=== PATIENT | female | born 1965 | race Caucasian/White ===

== ENCOUNTER 2020-05-02 06:20 | Day surgery (SDC) | payer OTHER ==
[~2020-05-02 06:20] MED LIST: AMILODIPINE PO; COZAAR100 MG PO; CRESTOR10 MG PO; SYNTHROID100 MCG PO; VITAMIN C100 MG PO; VITAMIN D PO; [UNRECOGNIZED DRUG - OTHER] PO
== END 2020-05-02 17:50 | disposition home or self-care (01) ==
LOC: CIR.AMB 06:20
PROVIDERS: ATTEND Obstetrics & Gynecology
DX: N84.0 Polyp of corpus uteri (principal); Z20.828 Contact with and (suspected) exposure to other viral communicable diseases

== ENCOUNTER 2020-05-03 10:53 | Emergency (ER) | payer OTHER ==
[~2020-05-03] VITALS: Ht 175.3 cm; Wt 90.7 kg
== END 2020-05-03 18:59 | disposition home or self-care (01) ==
LOC: ER 10:53
DX: K29.00 Acute gastritis without bleeding (principal); R51.9 Headache, unspecified

== ENCOUNTER 2020-05-06 13:14 | Emergency (ER) | payer OTHER ==
[~2020-05-06] VITALS: Ht 175.3 cm; Wt 90.7 kg
[2020-05-06] MEDS ORDERED: NORVASC2.5 MG PO (13:29)
== END 2020-05-06 15:03 | disposition home or self-care (01) ==
LOC: ER 13:14
DX: R51.9 Headache, unspecified (principal)

== ENCOUNTER 2023-01-19 13:58 | Emergency (ER) | payer OTHER ==
[~2023-01-19] VITALS: Ht 175.3 cm; Wt 88.5 kg
[~2023-01-19 13:58] MED LIST changes: +NORVASC2.5 MG PO
[2023-01-19 15:12] LABS: HEMATOCRIT 38.5 % (36.0-45.00); HEMOGLOBIN 13.1 g/dL (12.0-15.00); MEAN CELL VOLUME 82.3 fL (80.00-100.00); MEAN CORPUSCULAR HEMOGLOBIN 28.1 pg (27.00-32.0); MEAN CORPUSCULAR HGB CONC 34.2 g/dl (32.0-36.0); PLATELET COUNT 240 K/uL (150-450); RED BLOOD COUNT 4.68 M/uL (4.00-6.00); RED CELL DISTRIBUTION WIDTH 14.5 % (11.5-14.5)
[2023-01-19 15:53] LABS: CALCIUM 8.9 mg/dL (8.5-10.1); CREATININE SERUM 0.75 mg/dL (0.55-1.02); GFR 79.37; POTASSIUM 3.66 mEq/L (3.5-5.1)
[2023-01-19] MEDS ORDERED: PEPCID AC20 MG PO (21:55)
[2023-01-19] MEDS ORDERED: CARAFATE1 GM/10 ML PO (21:55)
[2023-01-19] MEDS ORDERED: ZOFRAN8 MG PO (21:55)
== END 2023-01-19 22:03 | disposition home or self-care (01) ==
LOC: ER 13:58
PROVIDERS: Emergency Medicine
DX: K29.70 Gastritis, unspecified, without bleeding (principal); I10 Essential (primary) hypertension